=== PATIENT | male | born 1975 | race Caucasian/White ===

== ENCOUNTER 2024-06-16 14:32 | Emergency (ER) | payer BC, SELFPAY ==
[2024-06-16] VITALS (13 sets, daily range): BP systolic 146–207; BP diastolic 79–136; PULSE 70–84; RESP 15–24; TEMP 37; O2SAT 94–100
--- NOTE | ~2024-06-16 | XR_ITS ---
EXAMINATION: XR chest 2V DATE: 06/16/2024 15:08 INDICATION: Hypertension TECHNIQUE: PA and lateral views of the chest were obtained. COMPARISON: None FINDINGS: The lungs are clear with no focal airspace opacities, pulmonary edema, pleural effusion or pneumothor ax. The cardiomediastinal silhouette is normal. Visualized bones and soft tissues are unremarkable. IMPRESSION: 1. No acute cardiopulmonary disease. Reviewed, dictated and finalized at location A.
--- NOTE | 2024-06-16 14:53 | ECG_ITS ---
Test Date: 2024-06-16 15:03:29 Measurements Intervals [place] Rate: 65 P: 43 MN: 142 QRS: 41 QRSD: 106 T: 47 QT: 390 QTc: 407 Interpretive Statements SINUS RHYTHM NORMAL ECG No previous ECG available for comparison Electronically Signed On 06-17-2024 07:19:47 CDT by Wesley Obando D.O.
[2024-06-16 15:05] LABS: Basophils Absolute Auto 0.1 K/mm3 (0.0-0.1); Basophils Percent Auto 0.9 % (0.2-1.2); Eosinophils Absolute Auto 0.2 K/mm3 (0-0.3); Eosinophils Percent Auto 2.2 % (0-4.4); Hematocrit 43.3 % (42.0-52.0); Hemoglobin 15.4 g/dL (14.0-18.0); Immature Granulocyte Absolute 0.02 K/mm3 (0.00-0.031); Immature Granulocyte Percent A 0.3 % (0-0.5); Lymphocytes Absolute Auto 2.65 K/mm3 (0.9-3.2); Mean Corpuscular HGB Conc 35.6 g/dl (32-36); Mean Corpuscular Volume 87.1 fl (80-100); Mean Platelet Volume 9.5 fl (7.4-10.4); Monocytes Absolute Auto 0.5 K/mm3 (0.1-0.6); Monocytes Percent Auto 7.4 % (2.6-8.5); Neutrophils Absolute Auto 3.4 K/mm3 (1.3-6.7); Neutrophils Percent Auto 50.2 % (45.5-73.1); Platelet Count Result 206 k/mm3 (150-375); Red Blood Count 4.97 M/mm3 (4.6-6.20); Red Cell Distribution Width 12.3 % (11.5-14.5); White Blood Count 6.8 K/mm3 (4.5-10.0)
[2024-06-16] MEDS: LOSARTAN POTASSIUM 100 MG TABLET PO (15:12)
[2024-06-16 15:23] LABS: Alanine Aminotransferase 24 U/L (6-50); Albumin Level 4.5 g/dL (3.5-5.1); Alkaline Phosphatase 51 U/L (38-126); Anion Gap 10 mmol/L (4-12); Aspartate Amino Transferase 27 U/L (17-59); Bilirubin,Total 0.4 mg/dL (0.2-1.3); Blood Urea Nitrogen 19 mg/dL (9-20); Calcium 9.1 mg/dL (8.4-10.2); Carbon Dioxide 26 mmol/L (22-30); Chloride 102 mmol/L (98-107); Estimated CRCL calculation 88 ml/min; Estimated Glomerular Filt Rate > 60; Glucose 99 mg/dL (65-110); Sodium 138 mmol/L (137-145)
--- NOTE | 2024-06-16 16:19 | ED.GENADULT ---
HPI - General Adult General Chief complaint: Unspecified Stated complaint: med refill Time Seen by Provider: 06/16/24 14:39 History of Present Illness HPI narrative: Patient is a 49-year-old male who presents ER for blood pressure medication refill as well as refill on his statin. He has been out of medication for about a month. He recently relocated here from [place]. He is establishing care with a primary care doctor in a couple days. He had started feeling dizzy over last couple days and felt he needed to have his blood pressure evaluated. He went and took it at a local store and it was in the 180 systolic. No chest pain or chest pressure. No dyspnea. That you reports he has been on losartan 100 mg in the past. Denies any numbness or weakness arms or legs. 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 Related Data Allergies Allergy/AdvReac Type Severity Reaction Status Date / Time No Known Allergies Allergy Verified 06/16/24 14:58 Review of Systems Constitutional: Constitutional: Reports no additional constitutional complaints ENT: Reports system reviewed and no additional complaints, except as documented Cardiovascular: Cardiovascular: Reports no additional cardiovascular complaints Respiratory: Respiratory: Reports no additional respiratory complaints Neurologic: Reports system reviewed and no additional complaints, except as documented [facility] Past Medical History Medical History (Updated 06/16/24 @ 17:26 by Arya Collins MD) Hyperlipidemia Hypertension Exam Narrative: GENERAL: Well-appearing, well-nourished, and in no acute distress. HEAD: Normocephalic, atraumatic. ENT: Mucous membranes moist. TMs normal bilaterally. CHEST: Clear to auscultation. No respiratory distress. HEART: Regular rate and rhythm. Normal peripheral pulses. EXTREMITIES: Normal range of motion. No edema. SKIN: Warm, dry, no rash. NEURO: Alert and oriented x3. PSYCH: Normal mood and affect. Course Course Emergency Course: Blood pressure improving after losartan. Feels comfortable discharge with medications to take at home. Lab work unremarkable. Normal chest x-ray an EKG. Vital Signs Vital signs: Vital Signs Temperature 98.6 F 06/16/24 14:35 Pulse Rate 84 06/16/24 14:35 Respiratory Rate 20 06/16/24 14:35 Blood Pressure 207/112 H 06/16/24 14:35 Pulse Oximetry 100 06/16/24 14:35 Oxygen Delivery Room Air 06/16/24 14:35 Temperature 98.6 F 06/16/24 14:35 Pulse Rate 73 06/16/24 16:29 Respiratory Rate 18 06/16/24 16:29 Blood Pressure 162/79 H 06/16/24 16:29 Pulse Oximetry 95 06/16/24 16:29 Oxygen Delivery Room Air 06/16/24 14:35 Medical Decision Making Vital Signs Vital Signs: Vital Signs Temperature 98.6 F 06/16/24 14:35 Pulse Rate 84 06/16/24 14:35 Respiratory Rate 20 06/16/24 14:35 Blood Pressure 207/112 H 06/16/24 14:35 Pulse Oximetry 100 06/16/24 14:35 Oxygen Delivery Room Air 06/16/24 14:35 Temperature 98.6 F 06/16/24 14:35 Pulse Rate 73 06/16/24 16:29 Respiratory Rate 18 06/16/24 16:29 Blood Pressure 162/79 H 06/16/24 16:29 Pulse Oximetry 95 06/16/24 16:29 Oxygen Delivery Room Air 06/16/24 14:35 Lab Data 06/16/24 14:58 06/16/24 14:58 Labs: Lab Results 06/16/24 Range/Units 14:58 WBC 6.8 (4.5-10.0) K/mm3 RBC 4.97 (4.6-6.20) M/mm3 Hgb 15.4 (14.0-18.0) g/dL Hct 43.3 (42.0-52.0) % MCV 87.1 (80-100) fl MCH 31.0 (26-34) pg MCHC 35.6 (32-36) g/dl RDW 12.3 (11.5-14.5) % Plt Count 206 (150-375) k/mm3 MPV 9.5 (7.4-10.4) fl Immature Gran % (Auto) 0.3 (0-0.5) % Neut % (Auto) 50.2 (45.5-73.1) % Lymph % (Auto) 39.0 (18.3-44.2) % [place] % (Auto) 7.4 (2.6-8.5) % Eos % (Auto) 2.2 (0-4.4) % Baso % (Auto) 0.9 (0.2-1.2) % Lymph # (Auto) 2.65 (0.9-3.2) K/mm3 [place] # (Auto) 0.5 (0.1-0.6) K/mm3 Eos # (Auto) 0.2
== END 2024-06-16 16:31 | disposition home or self-care (01) ==
PROVIDERS: Emergency Provider Emergency Medicine
DX: R42 Dizziness and giddiness (principal); I10 Essential (primary) hypertension; E78.5 Hyperlipidemia, unspecified; Z76.0 Encounter for issue of repeat prescription; Z91.148 Patient's other noncompliance with medication regimen for other reason
CPT/HCPCS: 36415; 71046; 80053; 85025; 93005; 99283; A9270